=== PATIENT | male | born 1980 | race Caucasian/White ===

== ENCOUNTER 2022-02-24 10:26 | Emergency (ER) | payer OTHER ==
[~2022-02-24] VITALS: Ht 193 cm; Wt 102.0 kg
[2022-02-24 10:41] VITALS: BP 132/97
== END 2022-02-24 16:13 | disposition left against medical advice (07) ==
LOC: ER 10:26
DX: J11.1 Influenza due to unidentified influenza virus with other respiratory manifestations (principal); R05.9 Cough, unspecified; Z96.649 Presence of unspecified artificial hip joint
CPT/HCPCS: 71045; 99283